=== PATIENT | male | born 1945 | race Caucasian/White ===

== ENCOUNTER 2017-10-26 13:25 | Inpatient (IN) ==
[2017-10-26] MEDS ORDERED: Isovue-370 500 ML INFUS..BTL IV ONE (13:50)
[2017-10-26] MEDS ORDERED: 0.9 % Sodium Chloride 1,000 ML IVC ONE (13:51)
--- NOTE | 2017-10-26 13:54 | Emergency Department Note ---
Disposition Clinical Impression: Hallucination, Hypoxia, Hyperglycemia, Tobacco abuse Disposition: Admitted As Inpatient Condition: Fair Time of Disposition: 16:55 General Adult HPI - General Chief complaint: ED Altered Mental Status Stated complaint: "hallucinations,feels warm to touch,shaky" Time Seen by Provider: 10/26/17 13:34 Source: patient Mode of arrival: ambulatory Limitations: altered mental status Nursing Notes Reviewed: Yes Vital Signs Reviewed: Yes - History of Present Illness HPI Narrative: 72-year-old male persists for evaluation of "hallucinations" and not feeling right. Patient states that he woke up this morning and felt very fatigued. states the patient has been having visual hallucinations as well which is new. Patient denies any chest pain or shortness of breath. Patient denies any fevers or cough. states he does have a history of sepsis. Patient states that he did take his prescribed Percocet last night for his back pain. Denies any abdominal pain. No nausea or vomiting or diaphoresis. Denies history of any alcohol use. Patient states he does have a history of smoking. Patient has not any home oxygen. Pain Scale: 4 - Related Data Home Medications Medication Instructions Recorded Confirmed Amitriptyline [Elavil] 25 mg PO HS 10/26/17 10/26/17 Atorvastatin [Lipitor] 40 mg PO HS 10/26/17 10/26/17 Gabapentin [Neurontin] 800 mg PO TID 10/26/17 10/26/17 Glimepiride [Amaryl] 2 mg PO DAILY 10/26/17 10/26/17 Insulin Glargine,Hum.rec.anlog 28 unit SQ 10/26/17 10/26/17 [Basaglar Kwikpen U-100] Levothyroxine Sodium 50 mcg PO DAILY 10/26/17 10/26/17 OxyCODONE Immed Rel [Roxicodone 30 30 mg PO Q8H 10/26/17 10/26/17 MG] Ropinirole HCl [Requip] 0.5 mg PO HS 10/26/17 10/26/17 traZODone [TraZODone] 50 mg PO HS 10/26/17 10/26/17 Allergies Allergy/AdvReac Type Severity Reaction Status Date / Time morphine Allergy See Verified 10/26/17 15:12 Comments All systems ED: reviewed and negative except as stated. Constitutional: Denies: fever Cardiovascular: Denies: chest pain Respiratory: Denies: cough, dyspnea Gastrointestinal: Denies: abdominal pain, nausea, vomiting Past Medical History - Past Medical History Source: patient Medical history: Reports: diabetes Surgical history: Reports: other Psychiatric history: Reports: no psych history - Social History Smoking Status: Current every day smoker Smokeless Tobacco Status: No Alcohol use: Reports: none Drug use: Reports: none Physical Exam - General Limitations: altered mental status General appearance: other - Head Head exam: atraumatic, normocephalic, normal inspection - Eye Eye exam: Present: normal appearance, EOMI, miosis - ENT ENT exam: normal exam, mucous membranes moist - Neck Neck exam: Present: normal inspection, trachea midline - Chest Chest inspection: Present: normal inspection, symmetric chest wall rise - Respiratory Respiratory exam: Absent: respiratory distress, accessory muscle use - Cardiovascular Cardiovascular exam: Present: regular rate, normal rhythm. Absent: systolic murmur - Abdominal Exam Abdominal exam: Present: soft, Non-Tender. Absent: guarding, rebound - Extremities Exam Extremities exam: Present: normal inspection. Absent: pedal edema - Back Exam Back exam: Present: normal inspection - Neurological Exam Neurological exam: Present: alert, oriented X3, CN II-XII intact - Skin Skin exam: Present: warm, dry, intact, normal color Course Course Narrative: Patient was noted be hypoxic and requiring 3 L is cannula. Patient's also mildly tachycardic. Patient will get a sepsis evaluation with CT of the chest. Patient also get CT of the head. Basic labs. Disposition likely admission. - Reevaluation(s) Reevaluation #1: Patient seen and examined. Patient's resting comfortably. Oxygen supplement patient applied. Plan of care discussed with the patient family at bedside. Patient does not appear to have a COPD exacerbation given his lung exam however the patient likely has O2 requirement at baseline given his history of tobacco use Time: 17:40 Vital Signs Temperature 99.5 F 10/26/17 13:27 Pulse Rate 108 10/26/17 13:27 Respiratory Rate 18 10/26/17 13:27 Blood Pressure 111/73 10/26/17 13:27 O2 Sat by Pulse Oximetry 87 10/26/17 13:27 Temperature 99.5 F 10/26/17 13:41 Pulse Rate 91 10/26/17 17:34 Respiratory Rate 14 10/26/17 17:34 Blood Pressure 90/63 10/26/17 17:34 O2 Sat by Pulse Oximetry 94 10/26/17 17:34 Oxygen Delivery Oxygen Delivery Nasal Cannula Medical Decision Making - MDM Narrative Medical decision making narrative: 72-year-old male persists for evaluation of hallucinations as well as increasing fatigue. Patient's ED evaluation included basic labs chest x-ray as well as a CT scan of the head and chest. Patient's hallucinations were described by the patient's significant other states that he was having visual hallucinations. On exam the patient does not appear acutely altered. Patient is requiring some oxygen supplementation which is new for him. Patient does not have oxygen at home. Patient had a negative troponin with a mild elevation in kidney function. Given the fact the patient is not back to baseline with his mental status and hallucinations patient will be admitted for further evaluation. Patient does not present with any infectious etiology and antibiotics were not initiated in the ED. patient possibly was having hallucinations due to the hypoxia driven at home. Patient does have nausea department here. Patient's lungs sound relatively clear likely be admitted for oxygen supplementation as well as symptom resolution. - Lab Data Lab results reviewed: Yes I reviewed the patient's lab results. Result diagrams: 10/26/17 14:06 10/26/17 13:59 Lab Results 10/26/17 10/26/17 10/26/17 Range/Units 13:38 13:59 14:06 WBC 10.9 (4.3-11.1) K/mcL RBC 4.97 (4.19-5.50) M/mcL Hgb 15.3 (12.9-16.9) g/dL Hct 45.5 (37.5-50.1) % MCV 91.5 (83.0-100.0) fL MCH 30.8 (28.0-33.3) pg MCHC 33.6 (31.6-35.5) g/dL RDW 12.2 (11.5-14.5) % Plt Count 191 (140-400) K/mcL MPV 10.2 (9.4-12.4) fL Immature Gran % 0.5 (0-4) % Seg Neutrophils % 64.9 % Lymphocytes % 22.1 % Monocytes % 9.4 % Eosinophils % 2.3 % Basophils % 0.8 % Neutrophils # 7.1 (1.6-8.9) K/mcL Lymphocytes # 2.4 (0.6-4.6) K/mcL Monocytes # 1.0 (0.0-1.3) K/mcL Eosinophils # 0.3 (0.0-0.6) K/mcL Basophils # 0.1 (0.0-0.2) K/mcL Immature Plt Fraction 4.4 (1.1-6.1) % PT (9.4-12.1) Seconds INR APTT (26.0-36.0) Seconds VBG pH (7.32-7.42) pH Units VBG pCO2 (41-51) mmHg VBG pO2 (25-50) mmHg VBG HCO3 (21-27) mEq/L Sodium 135 L (136-145) mEq/L Potassium 4.7 (3.5-5.1) mEq/L Chloride 103 (98-107) mEq/L Carbon Dioxide 26 (23-29) mEq/L BUN 15 (8-23) mg/dL Creatinine 1.38 H (0.70-1.30) mg/dL Est GFR ( Amer) > 60 (> 60) Est GFR (Non-Af Amer) 51 L (> 60) BUN/Creatinine Ratio 11 (6-26) Glucose 269 H (70-105) mg/dL POC Glucose 257 H (70-99) mg/dL Calculated Osmolality 290 (280-300) Lactic Acid (0.5-2.2) mmol/L Calcium 9.0 (8.6-10.3) mg/dL Total Bilirubin 0.7 (0.3-1.0) mg/dL Direct Bilirubin 0.1 (0.0-0.2) mg/dL Indirect Bilirubin 0.6 (0.0-1.2) mg/dL AST 14 (13-39) Units/L ALT 17 (7-52) Units/L Alkaline Phosphatase 79 (34-104) Units/L Troponin I < 0.03 (< 0.04) ng/mL B-Natriuretic Peptide (Less than 100) pg/mL Serum Total Protein 6.7 (6.4-8.9) g/dL Albumin 3.7 (3.5-5.7) g/dL Globulin 3.0 (2.4-3.5) g/dL Albumin/Globulin Ratio 1.2 (1.1-2.2) TSH 1.197 (0.340-5.600) mcIU/mL Urine Color (Yellow) Urine Clarity (Clear) Urine pH (5.0-8.0) pH Units Ur Specific [place] (1.010-1.025) Urine Protein (Neg-Trace) mg/dL Urine Glucose (UA) (Normal) mg/dL Urine Ketones (Negative) mg/dL Urine Blood (Negative) Urine Nitrite (Negative) Urine Bilirubin (Negative) Urine Urobilinogen (Normal) mg/dL Ur Leukocyte Esterase (Negative) Ur Culture Indicated? (NO) Urine Opiates Screen (Vmfnem=960) ng/mL Ur Barbiturates Screen (Ssfhog=172) ng/mL Ur Phencyclidine Scrn (Cutoff=25) ng/mL Ur Amphetamines Screen (Uboioo=2797) ng/mL U Benzodiazepines Scrn (Skmovx=217) ng/mL Urine Cocaine Screen (Cutoff= 300) ng/mL U Marijuana (THC) Screen (Cutoff = 50) ng/mL Ur Drug Screen Interp Ethyl Alcohol < 10 (Less than 10) mg/dL 10/26/17 10/26/17 10/26/17 Range/Units 14:06 14:06 14:06 WBC (4.3-11.1) K/mcL RBC (4.19-5.50) M/mcL Hgb (12.9-16.9) g/dL Hct (37.5-50.1) % MCV (83.0-100.0) fL MCH (28.0-33.3) pg MCHC (31.6-35.5) g/dL RDW (11.5-14.5) % Plt Count (140-400) K/mcL MPV (9.4-12.4) fL Immature Gran % (0-4) % Seg Neutrophils % % Lymphocytes % % Monocytes % % Eosinophils % % Basophils % % Neutrophils # (1.6-8.9) K/mcL Lymphocytes # (0.6-4.6) K/mcL Monocytes # (0.0-1.3) K/mcL Eosinophils # (0.0-0.6) K/mcL Basophils # (0.0-0.2) K/mcL Immature Plt Fraction (1.1-6.1) % PT 12.9 H (9.4-12.1) Seconds INR 1.1 APTT 29.1 (26.0-36.0) Seconds VBG pH (7.32-7.42) pH Units VBG pCO2 (41-51) mmHg VBG pO2 (25-50) mmHg VBG HCO3 (21-27) mEq/L Sodium (136-145) mEq/L Potassium (3.5-5.1) mEq/L Chloride (98-107) mEq/L Carbon Dioxide (23-29) mEq/L BUN (8-23) mg/dL Creatinine (0.70-1.30) mg/dL Est GFR ( Amer) (> 60) Est GFR (Non-Af Amer) (> 60) BUN/Creatinine Ratio (6-26) Glucose (70-105) mg/dL POC Glucose (70-99) mg/dL Calculated Osmolality (280-300) Lactic Acid 1.6 (0.5-2.2) mmol/L Calcium (8.6-10.3) mg/dL Total Bilirubin (0.3-1.0) mg/dL Direct Bilirubin (0.0-0.2) mg/dL Indirect Bilirubin (0.0-1.2) mg/dL AST (13-39) Units/L ALT (7-52) Units/L Alkaline Phosphatase (34-104) Units/L Troponin I (< 0.04) ng/mL B-Natriuretic Peptide 50 (Less than 100) pg/mL Serum Total Protein (6.4-8.9) g/dL Albumin (3.5-5.7) g/dL Globulin (2.4-3.5) g/dL Albumin/Globulin Ratio (1.1-2.2) TSH (0.340-5.600) mcIU/mL Urine Color (Yellow) Urine Clarity (Clear) Urine pH (5.0-8.0) pH Units Ur Specific [place] (1.010-1.025) Urine Protein (Neg-Trace) mg/dL Urine Glucose (UA) (Normal) mg/dL Urine Ketones (Negative) mg/dL Urine Blood (Negative) Urine Nitrite (Negative) Urine Bilirubin (Negative) Urine Urobilinogen (Normal) mg/dL Ur Leukocyte Esterase (Negative) Ur Culture Indicated? (NO) Urine Opiates Screen (Lrqzez=122) ng/mL Ur Barbiturates Screen (Leuojg=487) ng/mL Ur Phencyclidine Scrn (Cutoff=25) ng/mL Ur Amphetamines Screen (Fagyrl=0639) ng/mL U Benzodiazepines Scrn (Xrttch=586) ng/mL Urine Cocaine Screen (Cutoff= 300) ng/mL U Marijuana (THC) Screen (Cutoff = 50) ng/mL Ur Drug Screen Interp Ethyl Alcohol (Less than 10) mg/dL 10/26/17 10/26/17 10/26/17 Range/Units 14:26 15:53 15:53 WBC (4.3-11.1) K/mcL RBC (4.19-5.50) M/mcL Hgb (12.9-16.9) g/dL Hct (37.5-50.1) % MCV (83.0-100.0) fL MCH (28.0-33.3) pg MCHC (31.6-35.5) g/dL RDW (11.5-14.5) % Plt Count (140-400) K/mcL MPV (9.4-12.4) fL Immature Gran % (0-4) % Seg Neutrophils % % Lymphocytes % % Monocytes % % Eosinophils % % Basophils % % Neutrophils # (1.6-8.9) K/mcL Lymphocytes # (0.6-4.6) K/mcL Monocytes # (0.0-1.3) K/mcL Eosinophils # (0.0-0.6) K/mcL Basophils # (0.0-0.2) K/mcL Immature Plt Fraction (1.1-6.1) % PT (9.4-12.1) Seconds INR APTT (26.0-36.0) Seconds VBG pH 7.34 (7.32-7.42) pH Units VBG pCO2 54 H (41-51) mmHg VBG pO2 124 H (25-50) mmHg VBG HCO3 29 H (21-27) mEq/L Sodium (136-145) mEq/L Potassium (3.5-5.1) mEq/L Chloride (98-107) mEq/L Carbon Dioxide (23-29) mEq/L BUN (8-23) mg/dL Creatinine (0.70-1.30) mg/dL Est GFR ( Amer) (> 60) Est GFR (Non-Af Amer) (> 60) BUN/Creatinine Ratio (6-26) Glucose (70-105) mg/dL POC Glucose (70-99) mg/dL Calculated Osmolality (280-300) Lactic Acid (0.5-2.2) mmol/L Calcium (8.6-10.3) mg/dL Total Bilirubin (0.3-1.0) mg/dL Direct Bilirubin (0.0-0.2) mg/dL Indirect Bilirubin (0.0-1.2) mg/dL AST (13-39) Units/L ALT (7-52) Units/L Alkaline Phosphatase (34-104) Units/L Troponin I (< 0.04) ng/mL B-Natriuretic Peptide (Less than 100) pg/mL Serum Total Protein (6.4-8.9) g/dL Albumin (3.5-5.7) g/dL Globulin (2.4-3.5) g/dL Albumin/Globulin Ratio (1.1-2.2) TSH (0.340-5.600) mcIU/mL Urine Color Yellow (Yellow) Urine Clarity Clear (Clear) Urine pH 5.5 (5.0-8.0) pH Units Ur Specific [place] > 1.030 H (1.010-1.025) Urine Protein Negative (Neg-Trace) mg/dL Urine Glucose (UA) Normal (Normal) mg/dL Urine Ketones Negative (Negative) mg/dL Urine Blood Negative (Negative) Urine Nitrite Negative (Negative) Urine Bilirubin Negative (Negative) Urine Urobilinogen Normal (Normal) mg/dL Ur Leukocyte Esterase Negative (Negative) Ur Culture Indicated? NO (NO) Urine Opiates Screen Positive H (Pccevh=826) ng/mL Ur Barbiturates Screen Negative (Fnkecg=407) ng/mL Ur Phencyclidine Scrn Negative (Cutoff=25) ng/mL Ur Amphetamines Screen Negative (Dyubtn=8737) ng/mL U Benzodiazepines Scrn Negative (Dzgomp=074) ng/mL Urine Cocaine Screen Negative (Cutoff= 300) ng/mL U Marijuana (THC) Screen Negative (Cutoff = 50) ng/mL Ur Drug Screen Interp See Below Ethyl Alcohol (Less than 10) mg/dL - Radiology Data Radiology results reviewed: Yes I reviewed the patient's radiology results. Chest X-Ray 10/26/17 13:35 IMPRESSION: No acute cardiopulmonary disease. D/ / Martínez Llanos MD / Martínez Llanos MD Interpreting Provider: Martínez Llanos MD Chest X-Ray 10/26/17 13:35 IMPRESSION: No acute cardiopulmonary disease. D/ / 10/26/2017 14:39:41 Martínez Llanos MD / [facility] Interpreting Provider: Martínez Llanos MD Chest X-Ray 10/26/17 13:35 IMPRESSION: No acute cardiopulmonary disease. D/ / 10/26/2017 14:39:41 Martínez Llanos MD / [facility] Interpreting Provider: Martínez Llanos MD Head CT 10/26/17 13:35 IMPRESSION: No acute intracranial abnormality. D/ / 10/26/2017 15:31:04 Martínez Llanos MD / [facility] [place] Interpreting Provider: Martínez Llanos MD Chest CTA 10/26/17 13:50 IMPRESSION: No evidence of pulmonary embolism or acute pulmonary abnormality. Bibasilar atelectasis/scarring. D/ / Wilson Baldwin MD / Wilson Baldwin MD Interpreting Provider: Wilson Baldwin MD - EKG Data EKG #1 EKG shows normal: sinus rhythm Rate: normal Rhythm: NSR Canalou/QRS: left axis deviation, RBBB T wave inversions noted in: v1, v2 When compared to previous EKG there are: changes noted (2015) Interpretation: no acute changes, nonspecific ST-T wave changes S.B.A.R. - S.B.A.R. Situation: Demographics Background: Presenting Complaint Assessment: Vital Signs, Course and respsone to treatment, Patient/Family Expectation Recommendation: Barrier(s) to disposition, Recommendation based on pending studies, treatments, or consults Bryan Report Given to: Dr. Robin Adams Repor Time: 16:55 Attestation Statement - Attestation Attestation: Patient was seen with resident physician. I reviewed the history, physical, assessment and plan, and agree with the findings. I also personally evaluated this patient and had [id number] time with this patient. 72-year-old male presents to the emergency department with chief complaint of hallucinations. Really he says he just does not feel right leg is moving through water. He says moving very slowly today. He does acknowledge that he took some OxyContin last night he said his usual dose. Patient was found by EMS to be somewhat hypoxic. And was brought to the emergency department. Patient says he does not have shortness of breath or chest pain. No abdominal pain. No other complaints. Review of systems as above remainder negative. Physical exam vital signs are stable. ENT is normal. Heart regular rhythm and rate. Lungs clear no wheezing. Abdomen soft nontender. Extremities unremarkable. Neurologically alert and oriented moves all extremities without focal deficits. Skin no obvious rashes. Psych normal. ED course we will do workup for sepsis concerned with the patient's symptoms that he may have some kind of infection also with the hypoxia and no history of home O2 use or requirement, I want to make sure that we determine what going on the patient's lungs as much as possible. Hemodynamically he remained stable throughout his stay. Workup did not reveal specific causes of his symptoms. However with the patient's now oxygen requirement he will need to be admitted to the hospital service for further evaluation and treatment. They were notified and agreed to accept the patient. I agree with resident physician assessment and plan.
[2017-10-26 14:20] LABS: Basophils # 0.1 K/mcL (0.0-0.2); Basophils % 0.8 %; Eosinophils # 0.3 K/mcL (0.0-0.6); Eosinophils % 2.3 %; Hematocrit 45.5 % (37.5-50.1); Hemoglobin 15.3 g/dL (12.9-16.9); Immature Granulocytes % 0.5 % (0-4); Immature Platelets 4.4 % (1.1-6.1); Lymphocytes # 2.4 K/mcL (0.6-4.6); Lymphocytes % 22.1 %; Mean Corpuscular HGB Conc 33.6 g/dL (31.6-35.5); Mean Corpuscular Hemoglobin 30.8 pg (28.0-33.3); Mean Corpuscular Volume 91.5 fL (83.0-100.0); Mean Platelet Volume 10.2 fL (9.4-12.4); Monocytes % 9.4 %; Neutrophils # 7.1 K/mcL (1.6-8.9); Platelet Count 191 K/mcL (140-400); Red Blood Count 4.97 M/mcL (4.19-5.50); Red Cell Distribution Width 12.2 % (11.5-14.5); Segmented Neutrophils % 64.9 %
[2017-10-26 14:29] LABS: VBG HCO3 29 mEq/L (21-27); VBG PCO2 54 mmHg (41-51); VBG PH 7.34 pH Units (7.32-7.42); VBG PO2 124 mmHg (25-50)
[2017-10-26 14:30] LABS: Troponin I < 0.03 ng/mL (< 0.04)
[2017-10-26 14:31] LABS: Alanine Aminotransferase 17 Units/L (7-52); Albumin 3.7 g/dL (3.5-5.7); Albumin/Globulin Ratio 1.2 (1.1-2.2); Alkaline Phosphatase 79 Units/L (34-104); Aspartate Amino Transferase 14 Units/L (13-39); BUN/Creatinine Ratio 11 (6-26); Bilirubin,Direct 0.1 mg/dL (0.0-0.2); Bilirubin,Indirect 0.6 mg/dL (0.0-1.2); Bilirubin,Total 0.7 mg/dL (0.3-1.0); Blood Urea Nitrogen 15 mg/dL (8-23); Carbon Dioxide 26 mEq/L (23-29); Chloride 103 mEq/L (98-107); Ethanol < 10 mg/dL (Less than 10); Glucose 269 mg/dL (70-105); Osmolality,Calculated 290 (280-300); Potassium 4.7 mEq/L (3.5-5.1); Sodium 135 mEq/L (136-145); Total Protein 6.7 g/dL (6.4-8.9); eGFR For Non-African Americans 51 (> 60)
[2017-10-26 14:44] LABS: Thyroid Stimulating Hormone 1.197 mcIU/mL (0.340-5.600)
[2017-10-26 14:47] LABS: INR 1.1; Prothrombin Time 12.9 Seconds (9.4-12.1)
[2017-10-26 14:50] LABS: Activated Partial Thrombo Time 29.1 Seconds (26.0-36.0)
[2017-10-26 16:01] LABS: Bilirubin,Urine Negative (Negative); Blood,Urine Negative (Negative); Clarity,Urine Clear (Clear); Color,Urine Yellow (Yellow); Glucose,Urine (UA) Normal (Normal); Ketones,Urine Negative (Negative); Leukocyte Esterase,Urine Negative (Negative); Nitrite,Urine Negative (Negative); PH,Urine 5.5 pH Units (5.0-8.0); Protein,Urine Negative (Neg-Trace); Specific Gravity,Urine > 1.030 (1.010-1.025); Urobilinogen,Urine Normal (Normal)
[2017-10-26 16:22] LABS: Amphetamine Screen,Urine Negative ng/mL (Cutoff=1000); Barbiturate Screen,Urine Negative ng/mL (Cutoff=200); Benzodiazepines Screen,Urine Negative ng/mL (Cutoff=200); Cannabinoid Screen,Urine Negative ng/mL (Cutoff = 50); Cocaine Screen,Urine Negative ng/mL (Cutoff= 300); Opiate Screen,Urine Positive ng/mL (Cutoff=300); Phencyclidine Screen,Urine Negative ng/mL (Cutoff=25)
[2017-10-26] MEDS ORDERED: Naloxone 0.4 MG/ML INJ IVP PRN (21:27)
[2017-10-26] MEDS ORDERED: 0.9 % Sodium Chloride 1,000 ML IVC SCH (21:30)
[2017-10-26] MEDS ORDERED: *HR* Dextrose 50 % in Water (Syg) 50 ML SYRINGE IVP PRN (22:14)
[2017-10-26] MEDS ORDERED: Dextrose Gel 15 GM/37.5 ML TUBE PO PRN ×2 (22:14)
[2017-10-26] MEDS ORDERED: D5% in Water 1,000 ML IVC PRN (22:14)
[2017-10-26] MEDS: *HR* Heparin 5,000 UNIT/ML VIAL SQ SCH (22:57)
[2017-10-26] MEDS: Acetaminophen 325 MG TABLET PO PRN (23:39)
[2017-10-27 03:39] LABS: Basophils # 0.1 K/mcL (0.0-0.2); Basophils % 0.8 %; Eosinophils # 0.4 K/mcL (0.0-0.6); Eosinophils % 4.4 %; Hematocrit 42.6 % (37.5-50.1); Hemoglobin 14.1 g/dL (12.9-16.9); Immature Granulocytes % 0.4 % (0-4); Immature Platelets 4.2 % (1.1-6.1); Lymphocytes # 3.2 K/mcL (0.6-4.6); Lymphocytes % 38.3 %; Mean Corpuscular HGB Conc 33.1 g/dL (31.6-35.5); Mean Corpuscular Hemoglobin 30.9 pg (28.0-33.3); Mean Corpuscular Volume 93.4 fL (83.0-100.0); Mean Platelet Volume 9.8 fL (9.4-12.4); Monocytes # 0.9 K/mcL (0.0-1.3); Monocytes % 10.5 %; Neutrophils # 3.8 K/mcL (1.6-8.9); Platelet Count 164 K/mcL (140-400); Red Blood Count 4.56 M/mcL (4.19-5.50); Red Cell Distribution Width 12.1 % (11.5-14.5); Segmented Neutrophils % 45.6 %
[2017-10-27 03:58] LABS: BUN/Creatinine Ratio 11 (6-26); Blood Urea Nitrogen 13 mg/dL (8-23); Calcium 8.2 mg/dL (8.6-10.3); Carbon Dioxide 29 mEq/L (23-29); Chloride 105 mEq/L (98-107); Chol/HDL Ratio 3.2 (0-4.9); Cholesterol 80 mg/dL (< 200); Glucose 203 mg/dL (70-105); HDL Cholesterol 25 mg/dL (40-59); LDL Cholesterol,Calculated 32 mg/dL (0-99); Magnesium 1.7 mg/dL (1.6-2.6); Osmolality,Calculated 292 (280-300); Potassium 4.1 mEq/L (3.5-5.1); Sodium 138 mEq/L (136-145); Triglycerides 117 mg/dL (< 150); eGFR For Non-African Americans 58 (> 60)
[2017-10-27] MEDS: Ipratropium/Albuterol Neb 3 ML IH SCH ×2 (04:49→09:57)
[2017-10-27] MEDS: *HR* Heparin 5,000 UNIT/ML VIAL SQ SCH (08:07)
[2017-10-27] MEDS: Insulin LISPRO 300 UNITS/3 ML VIAL SQ SCH ×2 (08:08→11:40)
[2017-10-27] MEDS: Acetaminophen 325 MG TABLET PO PRN (08:19)
--- NOTE | 2017-10-27 09:35 | Internal Med History&Physical ---
Date of Encounter: 10/27/17 Time of Encounter: 22:00 Internal Medicine - H&P: HPI History of present illness: Mr. Zavala is a 72 year old male with PMH of Diabetes, CKD3, HTN, who presents with reported "hallucinations" and not feeling right. Given that patient was a poor historian and family members were unavailable at the time of examination, much of the Hx was obtained from secondary records. Patient states that he woke up this morning feeling very weak and fatigued. Per ED documentation, reported patient having visual hallucinations of which patient does not recall. Patient denies any fevers, chills, cough, chest pain or shortness of breath, abdominal pain, nausea or vomiting. Patient states that he did take his prescribed Percocet last night for his back pain. He continues to smoke but denies home oxygen. States that he had been using CPAP device in the past but discontinued use to discomfort. Denies history of any alcohol use. Past Med Surg Social Fam HX - Past Medical History Medical history: diabetes Additional medical history: chronic back pain Psychiatric history: no psych history - Past Surgical History Surgical History: other Additional surgical history: spinal injections - Social History Smoking Status: Current every day smoker Packs per day: 1/3 Smokeless Tobacco Status: No Alcohol use: none Drug use: none - Family History Father Living Status: Age at : 59 Cause of : [place] Hx Family Cardiac Disorders: Yes ([place]) Mother Living Status: Age at : 80 Cause of : [place] Hx Family Cardiac Disorders: Yes ([place]) Brother Living Status: Still Living Hx Family Cancer: Yes (Throat, Lung) Internal Medicine - H&P: Meds Amitriptyline [Elavil] 25 mg PO HS 10/26/17 [History] Atorvastatin [Lipitor] 40 mg PO HS 10/26/17 [History] Gabapentin [Neurontin] 800 mg PO TID 10/26/17 [History] Glimepiride [Amaryl] 2 mg PO DAILY 10/26/17 [History] Insulin Glargine,Hum.rec.anlog [Basaglar Kwikpen U-100] 28 unit SQ HS 10/26/17 [ History] Levothyroxine Sodium 50 mcg PO DAILY 10/26/17 [History] OxyCODONE Immed Rel [Roxicodone 30 MG] 30 mg PO Q8H 10/26/17 [History] Ropinirole HCl [Requip] 0.5 mg PO HS 10/26/17 [History] traZODone [TraZODone] 50 mg PO HS 10/26/17 [History] 3 Allergy/AdvReac Type Severity Reaction Status Date / Time morphine Allergy See Verified 10/26/17 15:12 Comments All Systems PM: A 10-system review of systems was performed and is negative for pertinent findings except as documented above in the HPI. - Constitutional Exam: a Internal Med - H&P Results - Labs CBC & Chem 7: 10/27/17 03:27 10/27/17 03:27 Labs: Short CBC 10/27/17 Range/Units 03:27 WBC 8.4 (4.3-11.1) K/mcL Hgb 14.1 (12.9-16.9) g/dL Hct 42.6 (37.5-50.1) % Plt Count 164 (140-400) K/mcL Neutrophils # 3.8 (1.6-8.9) K/mcL BMP 10/27/17 03:27 Sodium 138 Potassium 4.1 Chloride 105 Carbon Dioxide 29 BUN 13 Creatinine 1.23 Glucose 203 H Calcium 8.2 L Cardiac Enzymes 10/26/17 10/27/17 Range/Units 22:21 03:27 Troponin I < 0.03 < 0.03 (< 0.04) ng/mL - Assessment and plan (1) Acute respiratory failure with hypoxemia Status: Acute Assessment and plan: Possible hypercapnic respiratory failure in the setting of underlying COPD and Hx GI with previous report of CPAP use. No evidence CHF or underlying PNA. PE ruled out. Consider ABG; Duoneb treatment. Consider Pulmonology consult. (2) Altered mental state Status: Acute Assessment and plan: Likely secondary to acute hypoxia; No changes on CT. Treat underlying cause. Hold Amitryptiline and Gabapentin. Qualifiers: Altered mental status type: delirium Qualified Code(s): R41.0 - Disorientation, unspecified (3) Hypothyroidism Status: Acute Assessment and plan: Continue levothyroxine Qualifiers: Hypothyroidism type: unspecified Qualified Code(s): E03.9 - Hypothyroidism , unspecified (4) Tobacco abuse Status: Acute Assessment and plan: Nicodem Patch PRN - Time Spent With Patient Total time spent is greater than 50% in coordination of care (as documented) at patient's floor/unit and/or counseling patient: - Constitutional Vitals: Temp Pulse Resp BP Pulse Ox 97.8 F 74 16 103/69 97 10/27/17 07:43 10/27/17 07:43 10/27/17 07:43 10/27/17 07:43 10/27/17 07:43 Exam: Gen - Awake, alert, oriented x 3, no acute distress HEENT - NCAT, PERRLA, EOMI, hearing grossly intact, oropharynx benign CV - RRR, normal S1 and S2, no M/R/G, no BLE edema Resp - Normal WOB, CTAB, no W/R/R GI - Soft, NT/ND, no masses, normal bowel sounds, no HSP Skin - Warm, dry, no rashes/lesions/ulcers Psych - Normal mood and affect, no depression or anxiety
[2017-10-27] MEDS ORDERED: Nicotine 21 MG PATCH.TD24 TD SCH (10:45)
--- NOTE | 2017-10-27 11:02 | Internal Med Progress Note ---
Hospitalist Progress Note - Encounter Date of Encounter: 10/27/17 Time of Encounter: 11:00 - Subjective Interval History: No acute events overnight - Exam Vitals: Temp Pulse Resp BP Pulse Ox 97.8 F 74 18 103/69 92 10/27/17 07:43 10/27/17 07:43 10/27/17 09:57 10/27/17 07:43 10/27/17 09:57 Exam: Gen - Awake, alert, oriented x 3, no acute distress HEENT - NCAT, PERRLA, EOMI, hearing grossly intact, oropharynx benign CV - RRR, normal S1 and S2, no M/R/G, no BLE edema Resp - Normal WOB, CTAB, no W/R/R GI - Soft, NT/ND, no masses, normal bowel sounds, no HSP Skin - Warm, dry, no rashes/lesions/ulcers Psych - Normal mood and affect, no depression or anxiety - Assessment and Plan (1) Altered mental state Current Visit: No Status: Acute Assessment and Plan: Possibly secondary to acute hypoxia vs medication induced. Patient is on TCA and gabpentin. CT head negative. Obtain mRI brain to r/o stroke. Hold Amitryptiline and Gabapentin. (2) Acute respiratory failure with hypoxemia Current Visit: Yes Status: Acute Assessment and Plan: Possible hypercapnic respiratory failure in the setting of underlying COPD and Hx GI with previous report of CPAP use. No evidence CHF or underlying PNA. PE ruled out. Continue nebs (3) Tobacco abuse Current Visit: Yes Status: Acute Assessment and Plan: Nicodem Patch PRN (4) Hypothyroidism Current Visit: Yes Status: Acute Assessment and Plan: Continue levothyroxine (5) Diabetes Current Visit: No Status: Chronic Assessment and Plan: Continue sc short and long acting insulin DVT Prophylaxis: On heparin sc - Time Spent with Patient Total time spent is greater than 50% in coordination of care (as documented) at patient's floor/unit and/or counseling patient: Internal Medicine: Result - Labs CBC & Chem 7: 10/27/17 03:27 10/27/17 03:27 Labs: Short CBC 10/27/17 Range/Units 03:27 WBC 8.4 (4.3-11.1) K/mcL Hgb 14.1 (12.9-16.9) g/dL Hct 42.6 (37.5-50.1) % Plt Count 164 (140-400) K/mcL Neutrophils # 3.8 (1.6-8.9) K/mcL BMP 10/27/17 03:27 Sodium 138 Potassium 4.1 Chloride 105 Carbon Dioxide 29 BUN 13 Creatinine 1.23 Glucose 203 H Calcium 8.2 L Cardiac Enzymes 10/26/17 10/27/17 10/27/17 Range/Units 22:21 03:27 09:55 Troponin I < 0.03 < 0.03 < 0.03 (< 0.04) ng/mL - ABG Interpretation ABG results: PT/INR, D-dimer PT 12.9 Seconds (9.4-12.1) H 10/26/17 14:06 Consult Discharge Plan - Plan Referrals: Favian Layne DO [Primary Care Provider] - (1) Altered mental state Qualifiers: Altered mental status type: delirium Qualified Code(s): R41.0 - Disorientation, unspecified (5) Diabetes Qualifiers: Diabetes mellitus type: type 2 Diabetes mellitus assisted insulin use: without assisted use Diabetes mellitus complication status: with hyperglycemia Qualified Code(s): E11.65 - Type 2 diabetes mellitus with hyperglycemia
--- NOTE | 2017-10-27 11:28 | Discharge Summary ---
- NOTES TO OUTPATIENT PROVIDER Notes to Outpatient Provider: Pt denies hallucinations, however per histroy from family, hallucinations reported. May need to wean off TCAs, and place on lower dose of gabapentin if these are true hallucinations. F/U with pCP Orders not resulted at time of discharge: Pending orders 10/26/17 21:40 EKG [ECG 12 lead ECG] [ECG] Routine 10/26/17 22:12 EV echocardiogram Routine Date of Encounter: 10/27/17 Time of Encounter: 11:00 - Discharge Diagnosis (1) Altered mental state Priority: Primary Status: Acute Assessment and Plan: 72 year old male with PMH of Diabetes, CKD3, HTN, who presents with reported "hallucinations" and not feeling right. Given that patient was a poor historian and family members were unavailable at the time of examination, much of the Hx was obtained from secondary records. Patient states that he woke up the morning of admissionn feeling very weak and fatigued. Per ED documentation, reported patient having visual hallucinations of which patient does not recall. Patient says he fakes visual hallucinations to cheer up his . He was noted to be hypoxic on admission and started on nebs and oxygen supplementation and Iv fluids. Possibly secondary to acute hypoxia vs medication induced vs dehydration. CT head was negative for any intracranial pathology. CT angio chest was negative for PE. Patient is on TCA, oxycodone and gabpentin which were held on admission and may have contributed to lethargy. He had a sooner than anticipated recovery with supportive care and he was discharged in a stable condition. He will follow up with PCP regarding dosing of TCA, gabapentin and pain meds. Qualifiers: Altered mental status type: delirium Qualified Code(s): R41.0 - Disorientation, unspecified (2) Acute respiratory failure with hypoxemia Priority: Secondary Status: Acute (3) Tobacco abuse Priority: Secondary Status: Acute (4) Hypothyroidism Priority: Secondary Status: Acute Qualifiers: Qualified Code(s): E03.9 - Hypothyroidism, unspecified (5) Diabetes Priority: Secondary Status: Chronic Qualifiers: Diabetes mellitus type: type 2 Diabetes mellitus superintendent terminal insulin use: without fdc use Diabetes mellitus complication status: with hyperglycemia Qualified Code(s): E11.65 - Type 2 diabetes mellitus with hyperglycemia Hospital course: Mr. Zavala is a 72 year old male - Time Spent with Patient Total time spent providing and/or coordinating discharge services: - Discharge Medications Home Medications: Amitriptyline [Elavil] 25 mg PO HS 10/26/17 [History] Atorvastatin [Lipitor] 40 mg PO HS 10/26/17 [History] Gabapentin [Neurontin] 800 mg PO TID 10/26/17 [History] Glimepiride [Amaryl] 2 mg PO DAILY 10/26/17 [History] Insulin Glargine,Hum.rec.anlog [Basaglar Kwikpen U-100] 28 unit SQ HS 10/26/17 [ History] Levothyroxine Sodium 50 mcg PO DAILY 10/26/17 [History] OxyCODONE Immed Rel [Roxicodone 30 MG] 30 mg PO Q8H 10/26/17 [History] Ropinirole HCl [Requip] 0.5 mg PO HS 10/26/17 [History] traZODone [TraZODone] 50 mg PO HS 10/26/17 [History] Allergies/Adverse Reactions: 3 Allergy/AdvReac Type Severity Reaction Status Date / Time morphine Allergy See Verified 10/26/17 15:12 Comments Date of admission: 10/26/17 21:27 Primary care physician: Favian Layne - Constitutional Vitals: Temp Pulse Resp BP Pulse Ox 97.8 F 74 18 103/69 92 10/27/17 07:43 10/27/17 07:43 10/27/17 09:57 10/27/17 07:43 10/27/17 09:57 - Head Head exam: Present: atraumatic, normocephalic - Eye Eye exam: Present: PERRL, conjuntiva pink, sclera anicteric Pupils: Present: PERRL - Neck Neck exam general surgery: Present: supple, trachea midline. Absent: lymphadenopathy - Respiratory Respiratory exam: Present: CTAB. Absent: accessory muscle use, rales, rhonchi, wheezes - Cardiovascular Cardiovascular exam: Present: RRR, +S1, +S2. Absent: diastolic murmur, gallop, rubs, systolic murmur - GI/Abdominal GI/Abdominal exam: Present: normal bowel sounds, soft, no peritoneal signs. Absent: distended, tenderness - Extremities Exam Extremities exam: Present: warm, radial pulses palpable and symmetrical. Absent : calf tenderness, cyanotic, pedal edema - Neurological Exam Neurological exam: Present: CN II-XII intact, oriented X3, no focal deficits. Absent: pronater drift, facial droop, speech deficit - Skin Skin exam: Present: dry, intact - Patient Status Disposition: Home, Self-Care Condition: Good - Discharge Instructions Instructions: How to Stop Smoking (DC), Altered Mental Status (GEN), Hypoxia ( GEN) Follow Up With: Favian Layne DO [Primary Care Provider] -
[2017-10-27 11:31] VITALS: BP 110/70
[2017-10-27] MEDS ORDERED: Insulin DETEMIR 100 UNIT/ML X5UNITS SQ SCH (21:00)
[2017-10-27] MEDS ORDERED: Insulin LISPRO 300 UNITS/3 ML VIAL SQ SCH (21:00)
--- NOTE | 2017-10-28 15:17 | Electrocardiograph Report ---
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
--- NOTE | 2017-10-28 15:23 | Electrocardiograph Report ---
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
== END 2017-10-27 14:36 | disposition home or self-care (01) | DRG 947 ==
LOC: 3BNU 13:25 → EMEROOARM 13:25 → 3BNU 17:13
PROVIDERS: ADMIT Internal Medicine; ATTEND Internal Medicine